=== PATIENT | male | born 1945 | race Hispanic/Latino ===

== ENCOUNTER 2017-03-16 17:33 | Emergency (ER) | payer MEDICARE ==
[2017-03-16 17:33] VITALS: BMI 25.8
[2017-03-16 17:42] VITALS: BP 137/83; PULSE 64; TEMP 97.7
--- NOTE | 2017-03-16 17:52 | ED PDOC ---
Arrival/HPI - General Chief Complaint: Finger,Hand,&Wrist Time Seen by Provider: 03/16/17 17:42 Historian: Patient - History of Present Illness Narrative History of Present Illness (Text): 03/16/17 17:49 71yo male with no PMHx who present with complaint of right wrist pain s/p trauma an hour ago. States the ladder he was standing on, skidded to the ground and he landed with his right outstretched hand. Denies hitting his head anywhere. Denies LOC, focal weakness, any other complaint. Past Medical History - Provider Review Nursing Documentation Reviewed: Yes - Infectious Disease Hx of Infectious Diseases: None - Cardiac Hx Cardiac Disorders: No Hx Pacemaker: No - Pulmonary Hx Respiratory Disorders: No - Neurological Hx Paralysis: No - HEENT Hx Difficulty Chewing: No - Renal Hx Renal Disorder: No - Hematological/Oncological Hx Blood Transfusions: No - Integumentary Hx Basal Cell Carcinoma: No - Musculoskeletal/Rheumatological Hx Musculoskeletal Disorders: No - Gastrointestinal Hx Gastrointestinal Disorders: No - Genitourinary/Gynecological Hx Bladder Stone: No - Psychiatric Hx Emotional Abuse: No Hx Physical Abuse: No Hx Substance Use: No - Anesthesia Hx Anesthesia: Yes Hx Anesthesia Reactions: No Hx Malignant Hyperthermia: No - Suicidal Assessment Feels Threatened In Home Enviroment: No Family/Social History - Physician Review Nursing Documentation Reviewed: Yes Family/Social History: Unknown Family HX Smoking Status: Never Smoked Hx Alcohol Use: Yes Frequency of alcohol use: Socially Hx Substance Use: No Allergies/Home Meds Allergies/Adverse Reactions: Allergies Penicillins Allergy (Verified 03/16/17 17:39) RASH Review of Systems - Physician Review All systems were reviewed & negative as marked: Yes - Review of Systems Constitutional: Normal Eyes: Normal ENT: Normal Respiratory: Normal Cardiovascular: Normal Gastrointestinal: Normal Genitourinary Male: Normal Musculoskeletal: Arthralgias (Right wrist pain) Skin: Normal Neurological: Normal Endocrine: Normal Hemo/Lymphatic: Normal Psychiatric: Normal Physical Exam Vital Signs Reviewed: Yes Vital Signs Temp Pulse Resp BP Pulse Ox 03/16/17 17:41 97.7 F 64 19 137/83 98 Temperature: Afebrile Blood Pressure: Normal Pulse: Regular Respiratory Rate: Normal Appearance: Positive for: Well-Appearing, Non-Toxic, Comfortable Pain Distress: None Mental Status: Positive for: Alert and Oriented X 3 - Systems Exam Head: Present: Atraumatic, Normocephalic Pupils: Present: PERRL Extroacular Muscles: Present: EOMI Conjunctiva: Present: Normal Mouth: Present: Moist Mucous Membranes Neck: Present: Normal Range of Motion Respiratory/Chest: Present: Clear to Auscultation, Good Air Exchange. No: Respiratory Distress, Accessory Muscle Use Cardiovascular: Present: Regular Rate and Rhythm, Normal S1, S2. No: Murmurs Abdomen: Present: Normal Bowel Sounds. No: Tenderness, Distention, Peritoneal Signs Back: Present: Normal Inspection Upper Extremity: Present: Normal ROM, NORMAL PULSES, Tenderness (Right wrist), Swelling, Neurovascularly Intact, Capillary Refill < 2s, Deformity, Other (5/5 strenght). No: Cyanosis, Edema, Erythema, Temperature Abnormalties Lower Extremity: Present: Normal Inspection. No: Edema Neurological: Present: GCS=15, CN II-XII Intact, Speech Normal Skin: Present: Warm, Dry, Normal Color. No: Rashes Psychiatric: Present: Alert, Oriented x 3, Normal Insight, Normal Concentration Medical Decision Making ED Course and Treatment: 03/16/17 18:10 Right wrist - Distal radial and scaphoid fracture sugar tong splint placed Arm placed on a sling Result DW the pt. Strongly advised to f/u with orthopedist this week TRT ED if he can see the ortho or for any new or worsening symptoms PT was NVI in ED. Strength was 5/5 and he had FROM. - RAD Interpretation Radiology Orders: 03/16/17 17:48 WRIST, RIGHT 3 VIEWS [RAD] Stat 03/16/17 17:49 FOREARM RIGHT [RAD] Stat - Medication Orders Current Medication Orders: Discontinued Medications Tramadol HCl (Ultram) 50 mg PO STAT STA Stop: 03/16/17 17:50 Last Admin: 03/16/17 17:55 Dose: 50 mg Disposition/Present on Arrival - Present on Arrival Any Indicators Present on Arrival: No History of DVT/PE: No History of Uncontrolled Diabetes: No Urinary Catheter: No History of Decub. Ulcer: No History Surgical Site Infection Following: None - Disposition Have Diagnosis and Disposition been Completed?: Yes Diagnosis: Wrist fracture, Scaphoid fracture Disposition: HOME/ ROUTINE Disposition Time: 18:15 Patient Plan: Discharge Patient Problems: Current Active Problems Problem Status Onset Scaphoid fracture Acute Wrist fracture Acute Condition: STABLE Discharge Instructions (ExitCare): Wrist Fracture in Adults (ED), Scaphoid Fracture (ED) Additional Instructions: Follow up with orthopedist Return to ED for any new or worsening symptoms Prescriptions: oxyCODONE/Acetaminophen [Percocet 5/325 mg Tab] 1 ea PO Q6 #10 tab Referrals: Kenrick Alatorre MD [Primary Care Provider] - Follow up with primary Luis Granado DO [Staff Provider] - Follow up with primary
[2017-03-16 18:40] VITALS: RESP 16; O2SAT 99
--- NOTE | 2017-03-17 08:09 | RAD ---
PROCEDURE: Radiographs of the Right Forearm HISTORY: arm pain s/p trauma COMPARISON: None available. TECHNIQUE: Frontal and lateral views obtained. FINDINGS: BONES: No fracture or destructive lesion. JOINT SPACES: Unremarkable. OTHER FINDINGS: None. IMPRESSION: Unremarkable radiographs of the right forearm.
--- NOTE | 2017-03-17 08:12 | RAD ---
PROCEDURE: Right Wrist Radiographs. HISTORY: wrist pain s/p trauma COMPARISON: None. FINDINGS: BONES: Questionable nondisplaced fracture of the lateral proximal radius, intra-articular. No other fracture identified. JOINTS: Intra-articular fracture extending to articular surface of distal radius. Normal carpal alignment is maintained. SOFT TISSUES: Radial soft tissue swelling about the wrist. OTHER FINDINGS: None. IMPRESSION: Suspected nondisplaced fracture lateral aspect proximal radius, intra-articular.
== END 2017-03-16 18:41 | disposition home or self-care (01) ==
LOC: ED 17:33
DX: S62.001A Unspecified fracture of navicular [scaphoid] bone of right wrist, initial encounter for closed fracture (principal); W11.XXXA Fall on and from ladder, initial encounter; Z88.0 Allergy status to penicillin